=== PATIENT | female | born 1960 | race Caucasian/White ===

== ENCOUNTER → 2024-11-07 | Outpatient (CLI) | payer MEDICARE, MEDICAID ==
[2024-11-06 11:49] LABS: CREATININE 1.05 MG/DL (0.40-0.90); TOTAL CARBON DIOXIDE 25.1 MMOL/L (24-32); eGFR 53 ML/MIN
[~2024-11-07] MED LIST: iohexol 300mg/ml 100ml inj. ONE
--- NOTE | 2024-11-07 13:30 | RADIOLOGY REPORT ---
Indication: LEFT UPPER QUADRANT PAIN Technique: CT axial images of the abdomen and pelvis are obtained with intravenous contrast. Coronal and sagittal reformats were obtained. Radiation Dose Information: CTDI volume is 20 mGy. Dose-length product is 1007 mGy*cm Comparison: None FINDINGS: Lung bases demonstrate atelectasis. Adrenal glands, spleen, pancreas unremarkable. Cholecystectomy. Dilated CBD measuring 8 mm. 6 mm right hepatic lobe hypodensity with mild peripheral enhancement, too small to characterize statistically likely represents a hemangioma/ flash hemangioma. No hydronephrosis. 1.4 cm left renal cyst. 1 cm left renal lower pole cysts. Postsurgical changes. Marked gastric distention. Small bowel loops are normal in caliber. Moderate to large volume stool in the colon. Appendix nonvisualized. No secondary signs for appendicitis present. Abdominal aorta normal in caliber. Bladder is distended. No free pelvic fluid. No inguinal lymphadenopathy. Moderate bilateral sacroiliac degenerative joint disease. Moderate to severe lumbar degenerative disc disease L5-S1. Thoracolumbar dextrocurvature. IMPRESSION: Postsurgical changes stomach and marked gastric distention. Correlate for gastric outlet obstruction, gastroparesis and other etiologies. Recommend GI/ surgical consultation. Cholecystectomy. Dilated CBD likely secondary to reservoir effect. Correlate exclude obstructing ampullary / biliary etiology. Moderate volume stool in the colon. Other findings as described.
== END | disposition home or self-care (01) ==
LOC: RAD 10-30 07:48
PROVIDERS: ATTEND Family Medicine
DX: N28.1 Cyst of kidney, acquired (principal); R10.12 Left upper quadrant pain; Z90.49 Acquired absence of other specified parts of digestive tract; K83.8 Other specified diseases of biliary tract; M46.1 Sacroiliitis, not elsewhere classified; M51.379 Other intervertebral disc degeneration, lumbosacral region without mention of lumbar back pain or lower extremity pain; M43.8X6 Other specified deforming dorsopathies, lumbar region
CPT/HCPCS: 36415; 74177; 80053; Q9967